=== PATIENT | female | born 1985 | race Caucasian/White ===

== ENCOUNTER 2021-01-04 22:02 | Emergency (ER) | payer OTHER, SELFPAY ==
[2021-01-05 02:09] LABS: SARS-CoV-2 PCR by NAA Not Detected (NotDetected)
== END 2021-01-04 22:47 | disposition home or self-care (01) ==
LOC: ERS 22:02
DX: J04.0 Acute laryngitis (principal); Z20.822 Contact with and (suspected) exposure to COVID-19; E03.9 Hypothyroidism, unspecified
CPT/HCPCS: 87635; 99283; U0003; U0005